=== PATIENT | male | born 1960 | race Caucasian/White ===

== ENCOUNTER 2020-01-19 11:30 | Outpatient (RCR) | payer BC | END 2020-01-27 | disposition still patient (30) | LOC: PT | DX: S76.111D Strain of right quadriceps muscle, fascia and tendon, subsequent encounter (principal) ==

== ENCOUNTER 2020-02-18 13:00 | Outpatient (RCR) | payer BC | END 2020-02-18 13:30 | disposition still patient (30) | LOC: PT 13:00 | DX: S76.111D Strain of right quadriceps muscle, fascia and tendon, subsequent encounter (principal) ==

== ENCOUNTER → 2022-01-31 | Outpatient (RCR) | payer BC | END | disposition still patient (30) | LOC: PT | DX: M54.16 Radiculopathy, lumbar region (principal) ==

== ENCOUNTER 2022-02-02 16:00 | Outpatient (RCR) | payer BC | END 2022-03-02 | disposition still patient (30) | LOC: PT | DX: M54.16 Radiculopathy, lumbar region (principal) ==

== ENCOUNTER → 2022-04-21 | Outpatient (CLI) | payer BC | LOC: RAD 07:53 | DX: I77.811 Abdominal aortic ectasia (principal); I77.89 Other specified disorders of arteries and arterioles; I70.0 Atherosclerosis of aorta; I70.8 Atherosclerosis of other arteries ==